=== PATIENT | female | born 1985 | race Caucasian/White ===

== ENCOUNTER 2019-06-29 10:01 | Emergency (ER) | payer OTHER, SELFPAY ==
[2019-06-29 10:10] VITALS: BP 112/76; PULSE 74; RESP 14; TEMP 36.3; O2SAT 100
--- NOTE | 2019-06-29 10:34 | ED_ITS ---
HPI - Nausea/Vomiting/Diarrhea General Chief complaint: Nausea/Vomiting/Diarrhea Stated complaint: Dizzyness,hard to see,nausea Time Seen by Provider: 06/29/19 10:23 Source: patient Mode of arrival: Ambulatory Limitations: no limitations History of Present Illness HPI Narrative: Patient is a 33-year-old female. 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 Patient states she does not know why she is deaf in that ear. She does not currently see ear nose and throat. She states that for the past several weeks she has not felt very well. She could not explain it much more than this. The other days she had an episode of what sounds very much like vertigo. She states she was driving at the time. Lasted a short period of time. States she felt awkward afterwards. Did have some palpitations during that time. States that she does feel anxious about the symptoms. States that when she was a child she had equilibrium issues however she stated that she ?grew out of them ?she states she was told when she was a child that she could potentially have issues like this again in the future. She states the anxiety is coming from the fact that she has not had any symptoms for very long time and now office on without any specific reason she is having issues again. Related Data Home Medications Medication Instructions Recorded Confirmed albuterol sulfate 1 - 2 puff INHALATION Q4H PRN 06/29/19 06/29/19 carbamazepine 200 mg PO BID 06/29/19 06/29/19 cetirizine 10 mg PO DAILY 06/29/19 06/29/19 ibuprofen [Advil] 400 mg PO Q8H PRN 06/29/19 06/29/19 rizatriptan 5 mg PO PRN PRN 06/29/19 06/29/19 Previous Rx's Medication Instructions Recorded loratadine [Claritin] 10 mg PO DAILY PRN #30 tab 06/29/19 meclizine 25 mg PO TID PRN #14 tab 06/29/19 Allergies Allergy/AdvReac Type Severity Reaction Status Date / Time No Known Drug Allergies Allergy Verified 06/29/19 10:12 Review of Systems Constitutional Constitutional: Denies frequent falls and Denies headache(s) Eyes Comments: Blurry vision ENT Ears, Nose, Mouth, and Throat: Reports vertigo, Reports dizziness, Denies headache(s), Reports disequilibrium, Denies sinus pressure and Denies sore throat Comments: Hearing loss left ear Cardiovascular Cardiovascular: Reports palpitations and Denies dyspnea Respiratory Respiratory: Denies dyspnea Gastrointestinal Gastrointestinal: Denies abdominal pain, Reports nausea and Denies vomiting Musculoskeletal Musculoskeletal: Denies myalgias and Denies arthralgias Integumentary/Breasts Skin/Breast: Denies lesions and Denies rash Neurologic Neurologic: Denies behavioral changes, Denies burning sensations, Denies conf usion, Reports vertigo, Reports dizziness, Denies frequent falls, Denies headache(s), Denies focal weakness, Denies paresthesias and Reports disequilibrium Psychiatric Psychiatric: Denies behavioral changes and Denies confusion Endocrine Endocrine: Reports palpitations Hematologic/Lymphatic Hematologic/Lymphatic: Denies easy bleeding and Denies easy bruising Patient History Medical History Hearing loss in left ear (Acute) Social History Smoking Status: Current some day smoker tobacco type: cigarettes alcohol intake frequency: 0-2 drinks per day Substance Use Type: marijuana Exam Initial Vital Signs Initial Vital Signs: Vital Signs Temperature 97.4 F L 06/29/19 10:10 Pulse Rate 74 06/29/19 10:10 Respiratory Rate 14 06/29/19 10:10 Blood Pressure 112/76 06/29/19 10:10 Pulse Oximetry 100 06/29/19 10:10 Const General: cooperative, comfortable, well developed and well groomed Orientation: alert, awake and oriented x3 HENMT Head: normal to inspection and normocephalic Ears: TM's normal bilaterally Eyes Pupils: PERRL EOM: EOM intact bilaterally Resp Effort & Inspection: normal respiratory effort Auscultation: clear to auscultation bilaterally Cardio Rate: regular rate Rhythm: regular rhythm Pulses: radial pulses present GI Inspection: non-distended Palpation: soft, No firm and No tender Skin Lesions: no lesions Rashes: no rashes Neuro General: alert, awake and oriented x3 Cranial Nerves: CN's II-XI intact bilaterally Cognition: normal cognition Speech: speech normal Motor: muscle tone normal throughout Sensory Exam: no sensory deficits noted Extrem General: normal to inspection and capillary refill normal Psych Appearance: grossly normal and well kempt Scores GCS Kristi coma scale eye opening: Spontaneous [place] coma scale verbal response: Orientated [place] coma scale motor response: Obey commands [place] coma scale total score: 15 Course Orders Ordered: ED Orders 06/29/19 10:24 EKG-12 Lead Stat 06/29/19 10:55 Basic Metabolic Panel Stat Complete Blood Count AUTO DIFF Stat Test Serum,Qual Stat Discontinued Medications Sodium Chloride (Normal Saline 0.9%) 1,000 mls @ 1,000 mls/hr IV BOLUS ONE Stop: 06/29/19 11:22 Last Admin: 06/29/19 10:37 Dose: Not Given Documented by: LONG Ondansetron HCl (Zofran) 4 mg IV NOW ONE Stop: 06/29/19 10:24 Last Admin: 06/29/19 10:37 Dose: Not Given Documented by: LONG Vital Signs Vital signs: Vital Signs - 8 hr 06/29/19 10:10 06/29/19 11:43 Temperature 97.4 F L Pulse Rate 74 78 Respiratory Rate 14 18 Blood Pressure 112/76 Blood Pressure [Right Arm] 96/56 L Pulse Oximetry 100 100 MDM - Nausea/Vomiting/Diarrhea Lab Data Attestation: I reviewed the patient's lab results. Result diagrams: 06/29/19 10:55 06/29/19 10:55 Labs: Lab Results 06/29/19 06/29/19 06/29/19 Range/Units 10:55 10:55 10:55 WBC 6.2 (4.5-11.0) X10^3/uL RBC 4.56 (4.0-5.2) X10^6/uL Hgb 13.2 (12.0-16.0) g/dL Hct 39.7 (36-46) % MCV 87.0 (80-100) fL MCH 29.0 (26-34) PG MCHC 33.4 (30-36) % RDW 12.7 (11.6-14.8) % Plt Count 259 (150-400) X10^3/uL Neut % (Auto) 57.1 (50-75) % Lymph % (Auto) 30.7 (25-40) % [place] % (Auto) 8.9 (3-14) % Eos % (Auto) 2.4 (2-4) % Baso % (Auto) 0.9 (0-2) % Neut # (Auto) 3600 (9936-8795) /uL Lymph # (Auto) 1900 (1220-7798) /uL [place] # (Auto) 600 (0-900) /uL Eos # (Auto) 100 (0-450) /uL Baso # (Auto) 100 (0-100) /uL Sodium 139 (137-145) mmol/L Potassium 4.2 (3.4-5.1) mmol/L Chloride 103 (98-107) mmol/L Carbon Dioxide 28 (22-32) mmol/L BUN 11 (7-17) mg/dL Creatinine 0.60 (0.52-1.04) mg/dL Estimated GFR > 60.0 (>60) mL/min BUN/Creatinine Ratio 18.3 (6-22) Glucose 98 (70-100) mg/dL Calcium 9.3 (8.4-10.2) mg/dL Serum , Qual Negative (Negative) ECG Data Attestation: I personally reviewed and interpreted this ECG as follows: Prior ECG tracings: not available for review Interpretation: Sinus rhythm Ventricular rate is 63 First degree AV block with a as needed oval 232 milliseconds Normal QRS Normal QTC No ST T wave changes MDM Narrative Medical decision making narrative: Patient was seen in outside emergency departm ent approximately 20 days ago. Was diagnosed with trigeminal neuralgia however she states she did not take any other medications for this. She has followed up with her primary doctor since then. Has been on migraine medicine 1 time which she states did not improve any of her symptoms. Her workup here in the emergency department was unremarkable. Had a long discussion with her regarding her symptoms. She is going to started decongestant to see if this does not help. Also give her meclizine for symptom treatment. I informed her that I do recommend that she talk with her primary doctor about a follow-up with your nose and throat given her history of deafness in her left ear as this potentially could be causing issues with vertigo an equilibrium. She was given return precautions and follow-up instructions. She expressed understanding and agreement with plan. Patient also had a normal head CT during her emergency department visit several weeks ago Discharge Plan Departure Patient Disposition: Home Clinical Impression: Vertigo Instructions: Vertigo (Alternative Therapy), DI for Vertigo Activity Restrictions/Additional Instructions: I recommend you take all of your medications as directed. I also recommend that you talk with your primary doctor about a referral to see ear nose and throat. Return to the emergency department for any new or worsening symptoms Prescriptions: New loratadine [Claritin] 10 mg tablet 10 mg PO DAILY PRN (Reason: allergy symptoms) Qty: 30 RF: 0 meclizine 25 mg tablet 25 mg PO TID PRN (Reason: motion sickness) Qty: 14 RF: 0 No Action ibuprofen [Advil] 200 mg Tablet 400 mg PO Q8H PRN (Reason: Headache) RF: 0 cetirizine 10 mg Tablet 10 mg PO DAILY RF: 0 carbamazepine 200 mg Tablet 200 mg PO BID RF: 0 albuterol sulfate 90 mcg/actuation Hfa Aerosol Inhaler 1 - 2 puff INHALATION Q4H PRN (Reason: Shortness Of Breath) RF: 0 rizatriptan 5 mg tablet 5 mg PO PRN PRN (Reason: Migraine Headache) RF: 0
[2019-06-29 11:13] LABS: Add Manual Diff / Slide Review NO; Basophils Absolute Auto 100 /uL (0-100); Basophils Percent Auto 0.9 % (0-2); Eosinophils Absolute Auto 100 /uL (0-450); Eosinophils Percent Auto 2.4 % (2-4); Hematocrit 39.7 % (36-46); Hemoglobin 13.2 g/dL (12.0-16.0); Lymphocytes Absolute Auto 1900 /uL (1100-4500); Lymphocytes Percent Auto 30.7 % (25-40); Mean Corpuscular HGB Conc 33.4 % (30-36); Monocytes Absolute Auto 600 /uL (0-900); Monocytes Percent Auto 8.9 % (3-14); Neutrophils Absolute Auto 3600 /uL (1500-7000); Neutrophils Percent Auto 57.1 % (50-75); Platelet Count 259 X10^3/uL (150-400); Red Blood Cell Count 4.56 X10^6/uL (4.0-5.2); Red Cell Distribution Width 12.7 % (11.6-14.8); White Blood Cell Count 6.2 X10^3/uL (4.5-11.0)
[2019-06-29 11:23] LABS: BUN Creatinine Ratio 18.3 (6-22); Blood Urea Nitrogen 11 mg/dL (7-17); Calcium 9.3 mg/dL (8.4-10.2); Carbon Dioxide 28 mmol/L (22-32); Chloride 103 mmol/L (98-107); Estimated Glomerular Filt Rate > 60.0 mL/min (>60); Glucose 98 mg/dL (70-100); HEMOLYSIS < 15 (0-50); Potassium 4.2 mmol/L (3.4-5.1); Sodium 139 mmol/L (137-145)
[2019-06-29 11:42] LABS: Pregnancy Test Serum,Qual Negative (Negative)
[2019-06-29 11:43] VITALS: BP 96/56; PULSE 78; RESP 18; O2SAT 100
== END 2019-06-29 12:10 | disposition home or self-care (01) ==
PROVIDERS: Emergency Provider Emergency Medicine
DX: R42 Dizziness and giddiness (principal); R00.2 Palpitations; R11.0 Nausea
CPT/HCPCS: 36415; 80048; 84703; 85025; 93005; 99282; 99284